=== PATIENT | male | born 1990 | race Caucasian/White ===

== ENCOUNTER 2017-09-06 16:39 | Emergency (ER) | payer OTHER ==
[~2017-09-06] VITALS: Ht 176.5 cm; Wt 74.9 kg
[2017-09-06 16:40] VITALS: BP 150/96
[2017-09-06 17:31] LABS: MICROSCOPIC NOT IND
[2017-09-06 17:36] LABS: CULTURE INDICATED? NO
== END 2017-09-06 18:26 | disposition home or self-care (01) ==
LOC: ED 17:55
DX: I86.1 Scrotal varices (principal)
CPT/HCPCS: 76870; 81003; 87491; 87591; 93975; 99285